=== PATIENT | male | born 1980 | race Caucasian/White ===

== ENCOUNTER 2021-04-16 18:30 | Emergency (ER) | payer OTHER, SELFPAY ==
--- OUTSIDE RECORDS SUMMARY | 2021-04-16 18:33 | XMS REPORT | Continuity of Care Document ---
:1980 Author Organization [facility] t Address [address] [place] [address] Care Team Providers Name Role Phone Unavailable Unavailable Unavailable Payers Payer Name Policy Type Policy Number Effective Date Expiration Date S ource Problems This patient has no known problems. Allergies, Adverse Reactions, Alerts Allergy Allergy Status Severity Reaction(s) Onset Inactive Treating Comm ents Source Name Type Date Date Clinician No Known DA Active U 2018-0 [facility] No Known DA Active U 2017-0 [facility] 10-07 [facility] 00:00: [facility]ope 00 [facility] Medications This patient has no known medications. Procedures This patient has no known procedures. Results Test Description Test Time Test Comments Results Result [facility] e Comments - XR FLUORO NDL 2018-08-31 Patient Name: 11:20:00 SARA BLISS Unit No: [id number] EXAMS: CPT CODE: [id number] XR FLUORO NDL 12698 FLUOROSCOPICALLY GUIDED INJECTION OF THE LEFT SHOULDER WITH STEROID AND MARCAINE COMMENT: COMPARISON: No prior exams available. After informed consent was obtained a needle was placed in the glenohumeral joint with fluoroscopic guidance. Its position was confirmed by injecting Isovue 300 and obtaining an AP radiograph. 0.1 minutes of fluoroscopy time was utilized. Subsequently 2mL of Kenalog 40 mg per cc and 2mL of 0.75% Marcaine was injected. No immediate complications were encountered. at 1120 Reported and signed by: Kam Tse MD CC: Barbra Garcia MD Technologist: JOSUE JUDGE, RT(R) Transcribed D/ (1817) Asad [facility] NAME: SARA BLISS [address] [facility] PHYS: GOMMU. - MarianoaniyahBarbra [place]ano : 1980 AGE: 37 SEX: [place] [address] LOC: Y.RAD PHONE #: [phone] EXAM DATE: 08/31/2018 STATUS: REG CLI FAX #: [phone] RAD #: D/C DT PAGE 1 Signed Report Patient Name: SARA BLISS Unit No: [id number] EXAMS: CPT CODE: [id number] XR FLUORO NDL 20692 <Continued> Orig Print D/T: S: 08/31/2018 ([id number]) [facility] NAME: SARA BLISS [address] [facility] PHYS: GOMMU.Анна - Barbra Garcia : 1980 AGE: 37 SEX: [place] [id number] LOC: Y.RAD PHONE #: [phone] EXAM DATE: 08/31/2018 STATUS: REG CLI FAX #: [phone] RAD #: D/C DT PAGE 2 Signed Report
[2021-04-16] MEDS ORDERED: ONDANSETRON 4 MG/2 ML VIAL ONE (19:42)
[2021-04-16] MEDS ORDERED: MORPHINE 4 MG/ML SYR ONE (19:42)
[2021-04-16 20:07] LABS: Absolute Lymphocytes (CBC) 2.2 K/uL (0.7-4.9); Basophils % 0.7 % (0-1.3); Hematocrit 50.7 % (39.6-49.0); Lymphocytes % 19.1 % (15.3-44.8); RBC Red Blood Cell Count 5.19 M/uL (4.33-5.43)
[2021-04-16 20:09] LABS: Protime INR 0.94
[2021-04-16 20:24] LABS: Potassium 4.3 mmol/L (3.5-5.1)
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
[2021-04-16] MEDS ORDERED: HYDROMORPHONE HCL 1 MG/ML INJ ONE (21:18)
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
[2021-04-16 21:37] VITALS: TEMP 97.7; O2SAT 100
[2021-04-16 21:40] VITALS: BP 136/90
== END 2021-04-16 21:13 | disposition home or self-care (01) ==
LOC: ER 18:30
DX: S42.022A Displaced fracture of shaft of left clavicle, initial encounter for closed fracture (principal); S42.112A Displaced fracture of body of scapula, left shoulder, initial encounter for closed fracture; V28.4XXA Motorcycle driver injured in noncollision transport accident in traffic accident, initial encounter; F17.210 Nicotine dependence, cigarettes, uncomplicated
CPT/HCPCS: 36415; 70450; 71045; 71260; 72125; 74177; 80048; 82565; 85025; 85610; 86850; 86900; 86901; 96374; 96375; 99284; J1170; J2405; Q9967